=== PATIENT | female | born 1970 | race African-American/Black ===

== ENCOUNTER 2021-04-19 07:50 | Day surgery (SDC) | payer OTHER ==
[2021-04-13 14:38] VITALS: BMI 26.5
[2021-04-19] MEDS ORDERED: BUPIVACAINE HCL 50 ML ONE (08:52)
[2021-04-19] MEDS ORDERED: LIDOCAINE HCL 1%, 10 MG/ML (20ML VIAL) ONE (08:52)
[2021-04-19] MEDS ORDERED: MIDAZOLAM HCL 2 MG/2 ML SINGLE DOSE VIAL ONE (10:08)
[2021-04-19] MEDS ORDERED: PROPOFOL 20 ML ONE (10:17)
[2021-04-19] MEDS ORDERED: ceFAZolin SODIUM 1 GM VIAL ONE (10:22)
[2021-04-19] MEDS ORDERED: ONDANSETRON 4 MG/2 ML VIAL ONE (10:25)
[2021-04-19 12:32] VITALS: TEMP 97.8
[2021-04-19 12:34] VITALS: BP 135/78; PULSE 68
== END 2021-04-19 12:20 | disposition home or self-care (01) ==
LOC: FASU 07:50
PROVIDERS: ATTEND Orthopaedic Surgery
PROC: 0LB60ZZ Excision of Left Lower Arm and Wrist Tendon, Open Approach (ICD-10-PCS; 2021-04-19)
PROC: 0LB60ZZ Excision of Left Lower Arm and Wrist Tendon, Open Approach (ICD-10-PCS; 2021-04-19)
PROC: 0LB60ZZ Excision of Left Lower Arm and Wrist Tendon, Open Approach (ICD-10-PCS; 2021-04-19)
PROC: 0LB60ZZ Excision of Left Lower Arm and Wrist Tendon, Open Approach (ICD-10-PCS; 2021-04-19)
PROC: 0LB60ZZ Excision of Left Lower Arm and Wrist Tendon, Open Approach (ICD-10-PCS; 2021-04-19)
PROC: 0LB60ZZ Excision of Left Lower Arm and Wrist Tendon, Open Approach (ICD-10-PCS; 2021-04-19)
PROC: 0LB60ZZ Excision of Left Lower Arm and Wrist Tendon, Open Approach (ICD-10-PCS; 2021-04-19)
PROC: 0LB60ZZ Excision of Left Lower Arm and Wrist Tendon, Open Approach (ICD-10-PCS; 2021-04-19)
PROC: 0LB60ZZ Excision of Left Lower Arm and Wrist Tendon, Open Approach (ICD-10-PCS; 2021-04-19)
PROC: 01N50ZZ Release Median Nerve, Open Approach (ICD-10-PCS; principal; 2021-04-19 10:32)
PROC: 0LN80ZZ Release Left Hand Tendon, Open Approach (ICD-10-PCS; 2021-04-19 10:32)
DX: G56.02 Carpal tunnel syndrome, left upper limb (principal); M65.312 Trigger thumb, left thumb; M65.88 Other synovitis and tenosynovitis, other site
CPT/HCPCS: 84703; 88304-TC